=== PATIENT | male | born 1995 | race Caucasian/White ===

== ENCOUNTER → 2017-07-15 | Emergency (ER) | payer OTHER ==
[~2017-07-15] VITALS: Ht 198.1 cm; Wt 77.1 kg
[~2017-07-15] MED LIST: BACTRIM DS 8001 TA1 PO; BACTRIM DS 8001 TAB PO; MOTRIN600 M1 PO; PENICILLIN-VK500 MG PO
--- OUTSIDE RECORDS SUMMARY | 2017-07-15 14:19 | External Medical Summary Rpt | CCD ---
Author Author , MEHDI HARDING Address Unknown Phone Care Team Providers Care Rag Shredder Name Role Phone AWOSIKA JAQUELIN, AWOSIKA Unavailable Unavailable JAQUELIN GALLENSTEIN, III LAUREANO, Unavailable Unavailable GALLENSTEIN, III LAUREANO [facility] Unavailable Unavailable ASSOCIAT, [facility] Unavailable Unavailable EMER[facility]ENCY PH[facility], [facility] Purpose Continuity of Care Document - 09-21-2011 through 2016 Problems Code Diagnosis DOS Provider Status K0889 OTHER 09-27-2016 [facility] SPECIFIED N EMERGENCY DISORDERS PHYS OF TEETH SUPPORT STRCT 10178 ASTHMA 11-05-2011 STEPHENSTEIN UNSPECIFIED , III LAUREANO WITH EXACERBATIO N 7862 COUGH 11-05-2011 [facility] 3670 HYPERMETROP 09-21-2011 [place] [address] UNSPECIFIED 09-21-2011 AWOSIKA JAQUELIN TEAR FILM INSUFFICIEN CY
--- OUTSIDE RECORDS SUMMARY | 2017-07-15 14:19 | External Medical Summary Rpt | CCD ---
Author Author , MEHDI HARDING Address Unknown Phone Care Team Providers Care Stunt Person Name Role Phone AWOSIKA JAQUELIN, AWOSIKA Unavailable Unavailable JAQUELIN GALLENSTEIN, III LAUREANO, Unavailable Unavailable GALLENSTEIN, III LAUREANO [facility] Unavailable Unavailable ASSOCIAT, [facility] Unavailable Unavailable EMERGENCY PHYS, [facility] Purpose Continuity of Care Document - 09-21-2011 through 2016 Problems Code Diagnosis DOS Provider Status K0889 OTHER 09-27-2016 [facility] SPECIFIED N EMERGENCY DISORDERS PHYS OF TEETH SUPPORT STRCT 59307 ASTHMA 11-05-2011 GALLENSTEIN UNSPECIFIED , III LAUREANO WITH EXACERBATIO N 7862 COUGH 11-05-2011 [facility] 3670 HYPERMETROP 09-21-2011 [place] [address] UNSPECIFIED 09-21-2011 AWOSIKA JAQUELIN TEAR FILM INSUFFICIEN CY
--- OUTSIDE RECORDS SUMMARY | 2017-07-15 14:19 | External Medical Summary Rpt | CCD ---
Author Author , MEHDI HARDING Address Unknown Phone Care Team Providers Care Draw Tender Name Role Phone AWOSIKA JAQUELIN, AWOSIKA Unavailable Unavailable JAQUELIN GALLENSTEIN, III LAUREANO, Unavailable Unavailable GALLENSTEIN, III LAUREANO [facility] Unavailable Unavailable ASSOCIAT, [facility] Unavailable Unavailable EMERGENCY PHYS, [facility] Purpose Continuity of Care Document - 09-21-2011 through 2016 Problems Code Diagnosis DOS Provider Status K0889 OTHER 09-27-2016 [facility] SPECIFIED N EMERGENCY DISORDERS PHYS OF TEETH SUPPORT STRCT 56892 ASTHMA 11-05-2011 GALLENSTEIN UNSPECIFIED , III LAUREANO WITH EXACERBATIO N 7862 COUGH 11-05-2011 [facility] 3670 HYPERMETROP 09-21-2011 [place] [address] UNSPECIFIED 09-21-2011 AWOSIKA JAQUELIN TEAR FILM INSUFFICIEN CY
--- OUTSIDE RECORDS SUMMARY | 2017-07-15 14:19 | External Medical Summary Rpt | CCD ---
Author Author , MEHDI HARDING Address Unknown Phone Care Team Providers Care Investigator Narcotics Name Role Phone AWOSIKA JAQUELIN, AWOSIKA Unavailable Unavailable JAQUELIN GALLENSTEIN, III LAUREANO, Unavailable Unavailable GALLENSTEIN, III LAUREANO [facility] Unavailable Unavailable ASSOCIAT, [facility] Unavailable Unavailable EMERGENCY PHYS, [facility] Purpose Continuity of Care Document - 09-21-2011 through 2016 Problems Code Diagnosis DOS Provider Status K0889 OTHER 09-27-2016 [facility] SPECIFIED N EMERGENCY DISORDERS PHYS OF TEETH SUPPORT STRCT 36677 ASTHMA 11-05-2011 STEPHENSTEIN UNSPECIFIED , III LAUREANO WITH EXACERBATIO N 7862 COUGH 11-05-2011 [facility] 3670 HYPERMETROP 09-21-2011 [place] [address] UNSPECIFIED 09-21-2011 AWOSIKA JAQUELIN TEAR FILM INSUFFICIEN CY
--- OUTSIDE RECORDS SUMMARY | 2017-07-15 14:20 | External Medical Summary Rpt | CCD ---
Author Author , MEHDI Organization MEHDI Address Unknown Phone [email or web address] Immunization Name Date Rout CVX Reac Dose Comm Prov Is Faci e tion ent ider Refu lity Give sed n Tdap 04-0 Intr 115 0.50 Hist LILIA No H201 , 5-20 amus mL oric JUANITO Adso 17 cula al R rbed r Info MARICARMEN rmat SON ion - Sour ce Unsp ecif ied
--- OUTSIDE RECORDS SUMMARY | 2017-07-15 14:20 | External Medical Summary Rpt | CCD ---
Author Author , MEHDI Organization MEHD[facility] Address Unknown Phone [email or web address] Immunization Name Date Rout CVX Reac Dose Comm Prov Is Faci e tion ent ider Refu lity Give sed n Tdap 04-0 Intr 115 0.50 Hist LILIA No H201 , 5-20 amus mL oric JUANITO Adso 17 cula al R rbed r Info MARICARMEN rmat SON ion - Sour ce Unsp ecif ied
--- OUTSIDE RECORDS SUMMARY | 2017-07-15 14:20 | External Medical Summary Rpt ---
Author Author MEHDI Young, [employer] Organization [employer] Address Unknown Phone Unavailable
--- NOTE | 2017-07-15 15:07 | Urgent Treatment Center Report ---
History of Present Issue Date/Time Seen by Provider 07/15/17 8813 Visit Reason Pt arrived:Walked Presenting Problem:DENTAL PAIN, SWELLING TODAY Location if Accident: Onset of symptoms date/time:/ or onset unknown for:MEDICAL HX UNKNOWN Have you (or family members/close friends) recently traveled outside the [place]? N If Yes, where/when: Have you had exposure to infectious disease within the past month? TB? Other? Specify: Patient state that he began having dental pain and swelling on the left side of his face on his top back tooth State htat he has multiple broken and "rotten" teeth and thinks that one of them may be infected State that he called the dentist and they couldn't get him in today and told him to come here and get put on antibiotics and call them next week for appointment ALLERGIES Coded Allergies: No Known Allergies (04/26/16) Home Medications Active Scripts SULFAMETHOXAZOLE W/TRIMETHOPRI (Bactrim Ds Tab) 1 TAB PO BID #20 TAB Prov: 04/21/16 History Medical History General CAD? No Angina: No FL: No Hypertension? No Hyperlipidemia? No CHF? No DVT? No PE? No COPD? No Asthma? Yes Anemia? No GERD? No Gastric ulcers? No GI Bleed? No Hernia? No Thyroid Problems? No Hypothyroidism? No CVA? No Seizures? No Diabetes? No Renal Insuffiency? No UTI? No Stones? No GB Disease: No Nephritic Syndrome? No Asplenia? No Hepatitis? No Sickle Cell Disease? No Arthritis? No Migraines? No Cataracts? No Glaucoma? No MRSA? No HIV? No TB? No Anxiety? No Depression? No Cancer? No Immunization HX DT/Tetanus 1-4 Years Ago Surgical Hx Previous Surgery?Y SKIN GRAFT R FOOT Social History Smoking Hx Smoker: Current Every Day Smoker Tobacco: Yes Type Cigarettes Packs/day < 1 Pack Alcohol Alcohol: No Review of Systems All Other Systems Reviewed and Negative ENT dental caries. Physical Exam Vital Signs Vital Signs Date Time Temp Pulse Resp B/P Pulse O2 O2 Flow FiO2 Ox Delivery Rate 07/15 1413 98.0 50 18 96/80 97 General Appearance normal appearance, WD/WN, no apparent distress Ear, Nose, Throat dental caries, Swelling noted on left upper back gum area with multiple caries, broken teeth noted. redness and swelling along gum line like that seen with dental abcess Respiratory Status Yes: trachea midline, chest symmetrical, non tender chest. No: respiratory distress. Lung Sounds bilateral: normal breath sounds, lungs clear. Cardiovascular normal exam, regular rate/rhythm, no peripheral edema Neurologic alert, normal exam, oriented x 3 Medical Decision Making LABS/Meds/Orders Pt receiving controlled substance in ED? No Results/Orders Current Medication Orders Sig/Robert Start time Last Medication Dose Route Stop Time Status Admin Ketorolac 60 MG ONCE ONE 07/15 1515 AC Tromethamine IM 07/15 1516 Lidocaine HCl 15 ML ONCE ONE 07/15 151 AC TP 07/15 151 Orders Procedure Date/time Status RIC DENTAL BALL 07/15 150 Active Departure Departure Time of Disposition 1502 Disposition DC Home or Self Care(routine) Clinical Impression Primary Impression: Dental abscess Condition STABLE Referrals ADRIANA GIPSON Patient Instructions DI for Dental Pain, DI for Tooth Decay, Tooth Abscess Additional Instructions Follow up with dentist next week as advised Warm compresses to jaw area will help with pain Ice to jaw area will help with pain and swelling Over the counter Motrin or Tylenol as needed for fever or pain Take antibiotics as prescribed Return if needed Eat yogurt at least twice daily to help restore good landen to your intestines Discharge Counseling Counseled pt/family regarding diagnosis, test results, medications/RX, home care, follow up needs Prescriptions Current Visit Scripts Penicillin V Potassium 500 MG PO Q6 #40 TAB at 1506
[2017-07-15 15:15] VITALS: BP 100/81
== END ==
LOC: UTC 14:01
DX: K04.7 Periapical abscess without sinus (principal); J45.909 Unspecified asthma, uncomplicated; F17.210 Nicotine dependence, cigarettes, uncomplicated